=== PATIENT | male | born 1940 | race Caucasian/White ===

== ENCOUNTER 2017-08-02 09:13 | Inpatient (IN) | payer MEDICARE, OTHER ==
--- NOTE | 2017-08-01 16:08 | PDOC1 ---
History and Physical Date of Admission Date of Admission DATE: 08/02/17 Identification/Chief Complaint Chief Complaint left knee osteoarthritis pain Problems: Source Source: Chart review History of Present Illness History of Present Illness The patient is a 77 year old male who has left knee pain, worsening over the past couple of months. He stepped in a hole and twisted his knee about 3 months ago. The pain is located on the posterior aspect of his knee. He rates his pain at a 6/10. Icing his knee improves the pain. The patient has tried cortisone injections and bracing. His last injection was around the beginning of this year. He states he can walk long distances but has limited range of motion. He struggles to put a sock on with his current range of motion. He quit smoking cigarettes in 1983. Past Medical History Cardiovascular: HTN Endocrine: Diabetes Past Surgical History Past Surgical History: Other (rotator cuff repair 2003 & 2009, knee scope with meniscectomy 2006) Family History Family History: Cancer, Stroke Social History Smoke: Quit (1983) ALCOHOL: rare Drugs: None Current Medications Current Medications Current Medications Morphine Sulfate 5 mg/Ketorolac Tromethamine 30 mg/Ropivacaine 60 ml/ Epinephrine HCl 0.5 mg/Sodium Chloride 100 ml @ 100 mls/hr 1X PERIOP ONCE INT ART ; Start 08/02/17 at 06:00; Stop 08/02/17 at 06:59 Active Scripts Active Reported Multiple Vitamin (Multivitamin With Minerals) 1 Each Tablet 1 Each PO DAILY Losartan-Hctz 100-25 Mg Tab (Losartan/Hydrochlorothiazide) 1 Each Tablet 1 Each PO DAILY Aleve (Naproxen Sodium) 220 Mg Tablet 220 Mg PO BID Allergies Allergies: Coded Allergies: No Known Drug Allergies (Unverified , 07/15/17) Physical Exam General: Alert, Oriented X3, Cooperative, No acute distress HEENT: Atraumatic, EOMI Lungs: Normal air movement Heart: RRR Abdomen: Soft Extremities: No clubbing, No cyanosis, No edema, Normal pulses, Other (LEFT KNEE: mildly antalgic gait. There is significant varus alignment. No masses. No detectable effusion. Tenderness on the medial and lateral joint lines. Range of motion is 5-110 degrees. There is crepitus with range of motion, and pain at the extremes of motion. The knee is stable to varus and valgus stress without subluxation or laxity. Muscle strength is normal (5/5) for quadriceps and hamstrings, and muscle tone is normal. The skin shows discoloration distally from venous stasis with no scars, rashes, lesions or ulcers. Light touch sensation is intact. No edema and no varicosities. Dorsalis pedis pulse is intact and capillary refill is normal. The RIGHT knee shows his mildly antalgic gait. There is varus alignment. No masses. No detectable effusion. Tenderness on the joint lines. Range of motion is 3-115 degrees. There is crepitus with range of motion, and pain at the extremes of motion. The knee is stable to varus and valgus stress without subluxation or laxity. Muscle strength is normal (5/5) for quadriceps and hamstrings, and muscle tone is normal. The skin is normal with no scars, rashes, lesions or ulcers. Light touch sensation is intact. No edema and no varicosities. Dorsalis pedis pulse is intact and capillary refill is normal.) Skin: No rashes, No breakdown, No significant lesion Neuro: Normal speech, Sensation intact Psych/Mental Status: Mental status NL, Mood NL Images Images IMAGING REPORT 45 PA weightbearing view of both knees, lateral, and patella view of the left knee. Clinical information: Left knee pain Comparison: AP and lateral 06/09/17 Findings Bones: No fracture or dislocation is present. Joints: There is left knee medial joint space narrowing, with large osteophyte formation , and osteophytes in all three compartments. There is sclerosis of the medial tibiofemoral joint. These are Kellgren Leno grade 3 osteoarthritis changes. Soft tissue: Normal. Impression: Severe osteoarthritis of the left knee Dictated and Signed Using Voice Recognition Software Emigdio White MD VTE Prophylaxis Ordered VTE Prophylaxis Devices: Yes VTE Pharmacological Prophylaxi: Yes Assessment/Plan Assessment/Plan He has tried conservative treatment of cortisone injections and bracing with no improvement. He has constant pain and decreased range of motion that is limiting his activities. Dr. White recommended a total knee arthroplasty for pain relief. We discussed the potential risks of infection, neurovascular injury , bleeding, blood clots, need for revision surgery, or other potential surgical or anesthetic complications. He denies any metal or nickel allergies. Dr. White showed him the Journey total knee arthroplasty model in the clinic. He will followup 10-14 days after surgery. CRUZITO WHITEHEAD Aug 01, 2017 16:08
[~2017-08-02] VITALS: Ht 182.9 cm; Wt 167.0 kg
[~2017-08-02 09:13] MED LIST: CELECOXIB 200 MG CAPSULE. PO PRN; HYDROcodone/APAP 7.5/325MG 1 TAB TABLET PO PRN; IV RINGERS,LACTATED 1000ML 1,000 ML IV SCH; LIDOCAINE 1% PF 2 ML VIAL. ID PRN; LOSA1TAB22 PO; MORPHINE SULFATE 5 MG, KETOROLAC 30 MG, ROPIVacaine 0.5% PF 60 ML, EPINEPHrine 0.5 MG i... INT ART ONE; MULT-460 PO; NAPR220T70 PO; ONDANSETRON PF 4 MG/2 ML VIAL. IV PRN; PROCHLORPERAZINE 10 MG/2 ML VIAL. IV PRN; TRANEXAMIC ACID 1,000 MG in IV NS 50ML -- 1ST BAG INJ ONE; TRANEXAMIC ACID 1,000 MG in IV NS 50ML -- 2ND BAG INJ ONE; fentaNYL PF VIAL 100 MCG/2 ML VIAL IV PRN
[2017-08-02] MEDS ORDERED: fentaNYL PF VIAL 100 MCG/2 ML VIAL ONE ×3 (10:55→12:41)
[2017-08-02] MEDS ORDERED: DEXAMETHASONE SOD PHOS 20 MG/5 ML VIAL. ONE (10:55)
[2017-08-02] MEDS ORDERED: PROPOFOL 20 ML IV ONE (10:55)
[2017-08-02] MEDS ORDERED: FAMOTIDINE 20 MG/2 ML VIAL ONE (10:55)
[2017-08-02] MEDS ORDERED: ROCURONIUM 50 MG/5 ML VIAL. ONE (10:55)
[2017-08-02] MEDS ORDERED: ONDANSETRON PF 4 MG/2 ML VIAL. ONE (10:55)
[2017-08-02] MEDS ORDERED: LIDOCAINE 2% PF Vial for OR 5 ML VIAL. ONE (10:55)
[2017-08-02] MEDS ORDERED: SUCCINYLCHOLINE 200 MG/10 ML VIAL. ONE (10:55)
[2017-08-02] MEDS ORDERED: MIDAZOLAM HCL/PF 2 MG/2 ML VIAL. ONE (10:55)
[2017-08-02] MEDS ORDERED: TOBRAMYCIN POWDER 1.2 GM VIAL. ONE (11:02)
[2017-08-02] MEDS ORDERED: VANCOMYCIN 1 GM VIAL. ONE (11:02)
[2017-08-02] MEDS ORDERED: GLYCOPYRROLATE 1 MG/5 ML VIAL. ONE (11:50)
[2017-08-02] MEDS ORDERED: LABETALOL 20 MG/4 ML DISP.SYRIN. ONE (12:48)
[2017-08-02] MEDS ORDERED: DESFLURANE > 120 MINUTES IH ONE (13:43)
[2017-08-02] MEDS ORDERED: traMADol 50 MG TABLET PO PRN ×2 (14:15)
[2017-08-02] MEDS ORDERED: ZOLPIDEM 5 MG TABLET. PO PRN (14:15)
[2017-08-02] MEDS ORDERED: diphenhydrAMINE 50 MG/ML VIAL IV PRN (14:15)
[2017-08-02] MEDS ORDERED: PROCHLORPERAZINE 10 MG/2 ML VIAL. IV PRN (14:15)
[2017-08-02] MEDS ORDERED: 0.9 % SODIUM CHLORIDE 10 ML DISP.SYRIN. IV PRN (14:15)
[2017-08-02] MEDS ORDERED: PROCHLORPERAZINE 5 MG TABLET. PO PRN (14:15)
[2017-08-02] MEDS ORDERED: MORPHINE SULFATE 10 MG/ML VIAL. IV PRN (14:15)
[2017-08-02] MEDS ORDERED: MORPHINE SULFATE 4 MG/ML DISP.SYRIN. IV PRN ×3 (14:15)
[2017-08-02] MEDS ORDERED: fentaNYL PF VIAL 100 MCG/2 ML VIAL IV PRN ×2 (14:15)
[2017-08-02] MEDS ORDERED: ACETAMINOPHEN 325 MG TABLET. PO PRN (14:15)
[2017-08-02] MEDS ORDERED: oxyCODONE/APAP 5/325 1 TAB TABLET PO PRN (14:15)
[2017-08-02] MEDS ORDERED: CALCIUM CARBONATE 500 MG TAB.CHEW PO PRN (14:15)
[2017-08-02] MEDS ORDERED: DEXTROSE 50% 25 GM / 50ML DISP.SYRIN. IV PRN (14:15)
[2017-08-02] MEDS: MORPHINE SULFATE 2 MG/ML DISP.SYRIN. IV PRN ×2 (14:19→14:43)
--- NOTE | 2017-08-02 14:22 | PDOC4 ---
Operative Note Operative Note Date of Procedure: August 02, 2017 Pre-Op Diagnosis: Osteoarthritis left knee Post-Op Diagnosis: Osteoarthritis left knee Procedure: left total knee arthroplasty Surgeon: Cl White MD Cement Contractor: Amalia Tarango PA-C Anesthesia: General EBL: 100 mL Specimens Obtained: left knee bone and soft tissue Complications: none Implant Company: [employer] Drains: hemovac plus pain catheter Tourniquet time: 54 Minutes Tourniquet Pressure: 350 mm Hg Indications for Procedure: Arthritis pain unrelieved by nonoperative management. Findings: Severe osteoarthritis with bone on bone contact in all three compartments Implants used: Size 5 left bicruciate stabilized Journey II BCS cobalt chrome femoral component, size 5 left Journey nonporous tibial baseplate, size 5 -6 11 mm left Journey II BCS XLPE articular insert, 38 mm oval Tri II resurfacing patellar component Procedure in Detail: The patient was identified in the preoperative holding area, and the correct left lower extremity was marked by me. The patient was taken to the operating room where the patient was anesthetized by the Department of Anesthesia. Preoperative antibiotics were given intravenously. Tranexamic acid 1 g was given intravenously for intraoperative hemostasis. A "time-out" procedure was performed. The patient was positioned supine on the operative table with a tourniquet on the upper left thigh. The left lower limb was thoroughly prepped and draped in sterile fashion. An impervious stockinet and adhesive drape were used such that the skin was entirely covered. An Monroe leg bellamy was used. The operating team wore personal exhaust-ventilated hoods. The limb was elevated to exsanguinate it, and the tourniquet was inflated.. A midline skin incision was made with a scalpel using the patella and tibial tubercle as landmarks. Electrocautery was used for hemostasis. My certified surgical tech/first assistant used rake retractors. A medial parapatellar arthrotomy incision was used with extension into the distal quadriceps tendon. The patella was retracted laterally and Hohmann retractors were now used by my certified surgical tech/first assistant. Excess synovium, the menisci, and the cruciate ligaments were resected sharply. The patella was assessed and excess synovium and osteophytes around the patellar articulation were removed. The patella was measured with a caliper, cut freehand with a saw using caliper measurements, sized, and then drilled for an oval three-pegged patella component. Periarticular anesthetic injection was used in the suprapatellar pouch and distal quadriceps muscle. Whitesides's line and the transepicondylar axis were marked on the femur. An intra-medullary 5 degree cutting guide was pinned to the femur, and a distal femoral cut was made with an oscillating saw. An additional 4 mm resection was used due to the deep femoral sulcus, and deficient femoral condyle. My certified surgical tech/first assistant held Hohmann retractors and an [place] retractor to protect the medial and lateral collateral ligaments, the patellar tendon, the skin and the other soft tissues. An anterior referencing guide was applied with external rotation of 3 to match Whitesides line. A 5-in-1 Journey II cutting guide was then applied and pinned to the femur. The posterior, anterior, and all chamfer cuts were made with the oscillating saw. An extramedullary guide was pinned to the tibia and rotational alignment and the planned resection thickness assessed. An external alignment donald was used to verify the planned cut in the varus-valgus plane and regarding posterior slope referencing the tibial tubercle, the tibial shaft, the ankle joint, and the second metatarsal. The upper tibia was cut made with an oscillating saw. My certified surgical tech/first assistant held Hohmann retractors and a posterior cruciate ligament retractor to protect the medial and lateral collateral ligaments, the patellar tendon, the skin, the peroneal nerve and the other soft tissues. The upper tibia was sized with a trial baseplate. The posterior compartment was cleared of osteophytes and loose bodies, and posterior capsule released. Periarticular anesthetic injection was used in the posterior compartment. The box cut for a posterior stabilized component was made. A preliminary reduction was performed with a trial femur, trial tibial baseplate and trial polyethylene. Soft-tissue balancing was now performed, and extension and rotation of the alignments was checked using a guide donald in the tibial trial and a guide pin in the femur. No additional releases were required. The stability was assessed using different thicknesses of tibial articular surface to find satisfactory stability and good range of motion. The rotation of the tibial component was marked on the upper tibia. Final trial reduction was now performed verifying patella tracking and tibiofemoral stability and alignment. The tibia preparation was completed with a drill, saw, and fin punch at the previously noted rotation. The final implants were verified and opened. Outer gloves were changed by the operating team. The bone cuts were washed thoroughly with the Hutto InterPulse device and dried. Two packages of Chua + Nephew Rally HV bone cement were mixed in powdered form with Vancomycin 1gm and Tobramycin 1.2 gm, and then vacuum-mixed with the monomer, and placed into a cement gun. The cut surfaces of the bone were thoroughly dried with Plata-tip suction and with laparotomy sponges for cement interdigitation. The final components were cemented into place. The knee was kept at full extension while the cement hardened, and excess cement was removed. Tranexamic acid 1 g was redosed intravenously for additional intraoperative hemostasis. A final periarticular anesthetic injection was used for pain relief. The tourniquet was released, and electrocautery was used for hemostasis. A final check of [id number] and stability was made, and the polyethylene implant final size was chosen. The polyethylene implant was secured to the tibial baseplate, and the knee was reduced a final time. Thorough irrigation was used. Hemovac and pain catheter were used.The arthrotomy was closed with interrupted [id number] #1 PDS suture. The arthrotomy incision was then run with #1 STRATAFIX Symmetric PDS Plus Knotless suture. The subcutaneous tissues were closed with #2-0 Vicryl by my certified surgical tech/first assistant. The skin was approximated with lexy by my certified surgical tech/first assistant. The skin incision was then covered and reinforced with a Prevena sterile suction dressing. Needle and sponge counts were correct. There were no apparent complications. The patient returned to the recovery room in stable condition. CL WHITE MD Aug 02, 2017 14:22
[2017-08-02] MEDS: HYDROmorphone 2 MG/ML VIAL IV PRN ×2 (14:31→14:52)
--- NOTE | 2017-08-02 15:29 | RAD ---
Left knee, 2 views, 08/02/2017: History: Postop knee replacement A total knee prosthesis has been placed in satisfactory position. Surgical skin clips and a drain overlie the operative site anteriorly. There is no evidence of a retained surgical instrument, needle or radiopaque sponge on these 2 views. IMPRESSION: No significant postoperative abnormality is detected.
[2017-08-02] MEDS: IV DEXTROSE 5 %-0.45 % NACL 1,000 ML IV SCH (16:00)
[2017-08-02] MEDS: FERROUS SULFATE 325 MG TABLET. PO SCH (18:55)
[2017-08-02 19:22] VITALS: BP 132/78
[2017-08-02] MEDS: KETOROLAC 30 MG, BUPIVACAINE MPF 0.25% 20 ML, EPINEPHrine 0.5 MG in TOTAL VOLUME SYRING... INT ART SCH (19:24)
[2017-08-02] MEDS: ASPIRIN ENTERIC COATED 325 MG TABLET.DR. PO SCH (20:23)
[2017-08-02 22:17] VITALS: BP 143/70
[2017-08-03] MEDS: IV DEXTROSE 5 %-0.45 % NACL 1,000 ML IV SCH ×2 (01:13→12:00)
[2017-08-03 03:29] VITALS: BP 139/73
[2017-08-03] MEDS ORDERED: MAGNESIUM HYDROXIDE 2,400 MG/30 ML ORAL.SUSP. PO PRN (06:00)
[2017-08-03] MEDS: KETOROLAC 30 MG, BUPIVACAINE MPF 0.25% 20 ML, EPINEPHrine 0.5 MG in TOTAL VOLUME SYRING... INT ART SCH (06:15)
[2017-08-03 07:00] VITALS: BP 139/71
[2017-08-03] MEDS: ASPIRIN ENTERIC COATED 325 MG TABLET.DR. PO SCH ×2 (08:34→20:55)
[2017-08-03] MEDS: MULTIVITAMIN with MINERAL TABLET. PO SCH (08:34)
[2017-08-03] MEDS: SENNOSIDES/DOCUSATE 8.6/50MG TABLET. PO SCH (08:34)
[2017-08-03] MEDS: FERROUS SULFATE 325 MG TABLET. PO SCH ×2 (08:36→17:04)
[2017-08-03] MEDS: MELOXICAM 7.5 MG TABLET PO SCH (08:36)
[2017-08-03] MEDS: hydroCHLOROthiazide 25 MG TABLET PO SCH (08:36)
[2017-08-03] MEDS: LOSARTAN POTASSIUM 50 MG TABLET. PO SCH (08:36)
[2017-08-03] MEDS: HYDROcodone/APAP 7.5/325MG 1 TAB TABLET PO PRN (10:37)
[2017-08-03 11:51] VITALS: BP 134/74
--- NOTE | 2017-08-03 12:03 | PDOC2 ---
ESPINOZA MOSS CNA PCT 08/03/17 1203: CARDIAC CONSULT DATE OF CONSULT Date of Consult DATE: 08/03/17 TIME: 11:59 REASON FOR CONSULT Reason for Consult: Bradycardia REFERRING PHYSICIAN Referring Physician: Dr. White SOURCE Source: Chart review, Patient HISTORY OF PRESENT ILLNESS HISTORY OF PRESENT ILLNESS This os a 77 yo male who presented electively for a left total knee arthroplasty , which was performed 08/02/17. Patient was noted to be bradycardic, which prompted this consult. Review of tele revealed sinus bradycardia. No significant pauses noted. Denies any dizziness, diaphoresis, lightheadedness, syncope, SOA, palpitations, or chest pain. Bradycardia has since resolved and no further episodes since 8:00am. Presently maintaining HR in the low 80's. No previous h/o of cardiac disease. Had a stress test and echo conducted a couple of weeks ago with Dr. York with [facility] for pre-op clearance, both of which were reportedly normal. PAST MEDICAL HISTORY Cardiovascular: HTN Pulmonary: No pertinent hx GI: No pertinent hx Heme/Onc: No pertinent hx Hepatobiliary: No pertinent hx Psych: No pertinent hx Musculoskeletal: Osteoarthritis Rheumatologic: No pertinent hx Infectious disease: No pertinent hx ENT: No pertinent hx Renal/: No pertinent hx Endocrine: Diabetes Dermatology: No pertinent hx PAST SURGICAL HISTORY Past Surgical History: Cholecystectomy FAMILY HISTORY Family History: Hypertension SOCIAL HISTORY Smoke: No ALCOHOL: occassional Drugs: None Lives: with Family CURRENT MEDICATIONS CURRENT MEDICATIONS Current Medications Medications (Trade) Dose Ordered Sig/Carole Route PRN Reason Start Time Stop Time Status Last Admin Dose Admin Acetaminophen/ Hydrocodone Bitart (Lortab 7.5/325) 1 tab PRN Q3HRS PRN PO PAIN 08/02/17 14:15 08/03/17 10:37 Multivitamins (Thera M Plus) 1 tab DAILY PO 08/03/17 09:00 08/03/17 08:34 Senna/Docusate Sodium (Senna Plus) 1 tab DAILY PO 08/03/17 09:00 08/03/17 08:34 Ferrous Sulfate (Feosol) 325 mg BIDWMEALS PO 08/02/17 17:00 08/03/17 08:36 Ketorolac Tromethamine 30 mg/Bupivacaine HCl 20 ml/ Epinephrine HCl 0.5 mg/ Miscellaneous 43 ml @ 258 mls/hr Q12H INT ART 08/02/17 18:00 08/03/17 06:09 DC 08/03/17 06:15 Prochlorperazine Edisylate (Compazine) 10 mg PRN Q4HRS PRN IV NAUSEA/VOMITING 08/02/17 14:15 08/02/17 18:55 Cefazolin Sodium 3 gm/Sodium Chloride 100 ml @ 200 mls/hr Q6H IV 08/02/17 18:00 08/03/17 06:29 DC 08/03/17 06:15 Aspirin (Ecotrin) 325 mg BID PO 08/02/17 21:00 08/03/17 08:34 Meloxicam (Mobic) 15 mg DAILY PO 08/03/17 09:00 08/03/17 08:36 Losartan Potassium (Cozaar) 100 mg DAILY PO 08/03/17 09:00 08/03/17 08:36 Hydrochlorothiazide (Hydrodiuril) 25 mg DAILY PO 08/03/17 09:00 08/03/17 08:36 ALLERGIES ALLERGIES: Coded Allergies: No Known Drug Allergies (Unverified , 08/02/17) ROS Review of System 14 point ROS conducted with pertinent positives noted above in HPI. PHYSICAL EXAM General: Alert, Oriented X3, Cooperative, No acute distress HEENT: Atraumatic, Mucous membr. moist/pink Lungs: Clear to auscultation, Normal air movement Heart: Regular rate, Normal S1, Normal S2 Abdomen: Soft, No tenderness Extremities: No edema, Normal pulses, Other (NICOLA to LLE) Skin: No breakdown, No significant lesion Neuro: Normal speech, Sensation intact Psych/Mental Status: Mood NL VITALS VITALS Vital Signs Date Time Temp Pulse Resp B/P (MAP) Pulse Ox O2 Delivery O2 Flow Rate FiO2 08/03/17 11:51 97.6 84 20 134/74 (94) 95 Nasal Cannula 2.0 97.6 LABS Lab: Laboratory Tests Test 08/02/17 14:25 Glucose (Fingerstick) 172 mg/dL (70-99) ASSESSMENT/PLAN ASSESSMENT/PLAN 1. Sinus bradycardia, asymptomatic; resolved. possibly anesthesia induced 2. Osteoarthritis s/p left total knee arthroplasty 3. Hypertension Recommendations Avoid AV rober blocking agents Continue losartan for BP control No further cardiac workup warranted. May discontinue telemetry monitoring and transfer to surgical floor Thank you for the consultation Problems: FLORES FINNEGAN MD 08/03/17 1721: CARDIAC CONSULT ALLERGIES ALLERGIES: Coded Allergies: No Known Drug Allergies (Unverified , 08/02/17) ASSESSMENT/PLAN ASSESSMENT/PLAN Patient seen and examined. Agree with above nurse practitioner note. Asymptomatic bradycardia. Supportive care. OK to DC from CV perspective. No tele needed. Thanks Problems: ESPINOZA MOSS APRN Aug 03, 2017 12:03 FLORES FINNEGAN MD Aug 03, 2017 17:21
--- NOTE | 2017-08-03 13:20 | PDOC ---
PROGRESS NOTES Subjective Subjective No complaints. States he is feeling well. Cardiology consulted on patient and cleared patient for transfer to joint floor. Objective Vital Signs Vital Signs Date Time Temp Pulse Resp B/P (MAP) Pulse Ox O2 Delivery O2 Flow Rate FiO2 08/03/17 11:51 97.6 84 20 134/74 (94) 95 Nasal Cannula 2.0 97.6 Physical Exam Dressing dry. Prevena intact over incision. Pain catheter and Hemovac in place. Good dorsiflexion and plantarflexion of the foot with no evidence of neurovascular injury or DVT. Calves are soft and non-tender. Negative Homans. Peripheral pulses and light touch sensation intact. Labs Laboratory Tests Test 08/02/17 09:59 08/02/17 14:25 Glucose (Fingerstick) 117 mg/dL (70-99) 172 mg/dL (70-99) Laboratory Tests Test 08/02/17 14:25 Glucose (Fingerstick) 172 mg/dL (70-99) Imaging Postoperative x-rays reviewed by me, showing satisfactory total knee replacement , with no apparent complications. Assessment Assessment POD #1 TKA Problems: Plan Plan of Care Continue POC including DVT prophylaxis and physical therapy. He would like to go to [place] upon discharge on Tuesday. Pt was bradycardic after surgery and was sent to cardiac floor. Cardiology saw patient and no further cardiac workup is warranted. He may be transferred to the joint floor. CRUZITO WHITEHEAD Aug 03, 2017 13:20
[2017-08-03 15:00] VITALS: BP 116/62
[2017-08-03] MEDS ORDERED: BISACODYL 10 MG SUPP.RECT. PR PRN (16:00)
[2017-08-03 18:08] VITALS: BP 122/68
[2017-08-03] MEDS: HYDROcodone/APAP 10/325 1 TAB TABLET PO PRN (20:55)
[2017-08-04 03:27] VITALS: BP 132/78
[2017-08-04 05:00] VITALS: BP 154/84
[2017-08-04] MEDS: HYDROcodone/APAP 10/325 1 TAB TABLET PO PRN ×2 (05:36→09:39)
[2017-08-04 06:17] LABS: HEMATOCRIT 37.7 % (39.0-53.0); HEMOGLOBIN 12.5 g/dL (13.0-17.5)
[2017-08-04] MEDS: FERROUS SULFATE 325 MG TABLET. PO SCH ×2 (08:22→16:27)
[2017-08-04] MEDS: MELOXICAM 7.5 MG TABLET PO SCH (08:22)
[2017-08-04] MEDS: MULTIVITAMIN with MINERAL TABLET. PO SCH (08:22)
[2017-08-04] MEDS: ASPIRIN ENTERIC COATED 325 MG TABLET.DR. PO SCH ×2 (08:22→22:04)
[2017-08-04] MEDS: LOSARTAN POTASSIUM 50 MG TABLET. PO SCH (08:23)
[2017-08-04] MEDS: hydroCHLOROthiazide 25 MG TABLET PO SCH (08:23)
[2017-08-04] MEDS: SENNOSIDES/DOCUSATE 8.6/50MG TABLET. PO SCH (08:23)
--- NOTE | 2017-08-04 11:52 | PATHOLOGY ---
PATHOLOGY REPORT * * * * * * * * FINAL DIAGNOSIS: Segments of bone and soft tissue, left total knee arthroplasty: - Advanced degenerative arthritis. (JPM:mmalexys; 08/04/2017) REPORT ELECTRONICALLY SIGNED BY: Leonid Nobles M.D. DATE/TIME: 08/04/2017 11:51 * * * * * * * * GROSS PATHOLOGY: Received in formalin labeled "Cl Elaine, left knee tissue," are multiple segments of bone, including tibial plateau, measuring 15.3 x 13.5 x 4.7 cm in aggregate dimensions admixed with soft tissue; meniscus is present. The specimen shows focal eburnation of the articular surfaces. Winch Truck Operator sections of bone and soft tissue are submitted in cassette A1, following decalcification. (DAC; 08/03/2017) INITIAL CPT CODE(S): A; 75473, 03903 Professional services [place] [address] Technical services performed by [facility] at [address] [place] [address], [facility] [address] [address]. SPECIMEN(S) RECEIVED: A.Left knee tissue CLINICAL HISTORY: Left knee OA PATIENT: CL ELAINE /AGE: 704/16/1940 (Age: 77) PATIENT #: [id number] ALT CASE #: SPECIMEN COLLECTION DATE: 08/02/2017 SPECIMEN RECEIVED DATE: 08/02/2017 [facility] - [address] [place] [address] - PHONE: [phone] * * * END OF REPORT * * *
[2017-08-04] MEDS: HYDROcodone/APAP 7.5/325MG 1 TAB TABLET PO PRN (12:23)
--- NOTE | 2017-08-04 12:28 | PDOC ---
PROGRESS NOTES Subjective Subjective Doing well. Only reports mild pain increase from yesterday. Objective Vital Signs Vital Signs Date Time Temp Pulse Resp B/P (MAP) Pulse Ox O2 Delivery O2 Flow Rate FiO2 08/04/17 12:23 Room Air 08/04/17 08:23 75 154/84 08/04/17 06:41 20 08/04/17 05:00 98.0 98 98.0 08/03/17 11:51 2.0 Physical Exam Expected swelling. Pain catheter and drain have been removed. Prevena intact Calf soft and nontender. Negative Homans sign. Good AROM ankle. Peripheral pulses and light touch sensation intact. Labs Laboratory Tests Test 08/02/17 14:25 08/03/17 16:33 08/04/17 05:40 08/04/17 06:45 Glucose (Fingerstick) 172 mg/dL (70-99) 136 mg/dL (70-99) 122 mg/dL (70-99) Hemoglobin 12.5 g/dL (13.0-17.5) Hematocrit 37.7 % (39.0-53.0) Mean Corpuscular Hemoglobin Concent 33 g/dL (31-37) Laboratory Tests Test 08/03/17 16:33 08/04/17 05:40 08/04/17 06:45 Glucose (Fingerstick) 136 mg/dL (70-99) 122 mg/dL (70-99) Hemoglobin 12.5 g/dL (13.0-17.5) Hematocrit 37.7 % (39.0-53.0) Mean Corpuscular Hemoglobin Concent 33 g/dL (31-37) Assessment Assessment POD #2 TKA Problems: Plan Plan of Care Continue DVT prophylaxis and physical therapy. Planned discharge tomorrow. Office F/U in 10-[address] White saw and examined the patient as well. CRUZITO WHITEHEAD Aug 04, 2017 12:28
[2017-08-04] MEDS: oxyCODONE/APAP 7.5/325 1 TAB TABLET PO PRN ×2 (16:26→22:05)
[2017-08-04 18:07] VITALS: BP 128/88
[2017-08-05 05:46] LABS: HEMATOCRIT 34.8 % (39.0-53.0); HEMOGLOBIN 11.6 g/dL (13.0-17.5)
[2017-08-05] MEDS: oxyCODONE/APAP 7.5/325 1 TAB TABLET PO PRN ×3 (06:05→13:23)
[2017-08-05 06:07] VITALS: BP 136/82
[2017-08-05] MEDS: ASPIRIN ENTERIC COATED 325 MG TABLET.DR. PO SCH (09:06)
[2017-08-05] MEDS: SENNOSIDES/DOCUSATE 8.6/50MG TABLET. PO SCH (09:06)
[2017-08-05] MEDS: MULTIVITAMIN with MINERAL TABLET. PO SCH (09:06)
[2017-08-05] MEDS: hydroCHLOROthiazide 25 MG TABLET PO SCH (09:06)
[2017-08-05] MEDS: FERROUS SULFATE 325 MG TABLET. PO SCH (09:06)
[2017-08-05] MEDS: MELOXICAM 7.5 MG TABLET PO SCH (09:06)
[2017-08-05 09:07] VITALS: BP 136/82
[2017-08-05] MEDS: LOSARTAN POTASSIUM 50 MG TABLET. PO SCH (09:07)
--- NOTE | 2017-08-05 13:35 | PDOC ---
PROGRESS NOTES Subjective Subjective Doing well. Planning for discharge later today after PT. Objective Vital Signs Vital Signs Date Time Temp Pulse Resp B/P (MAP) Pulse Ox O2 Delivery O2 Flow Rate FiO2 08/05/17 13:23 16 Room Air 08/05/17 09:07 93 136/82 08/05/17 06:07 98.6 94 98.6 08/03/17 11:51 2.0 Physical Exam Expected swelling. Prevena dressing intact and dry. Calf soft and nontender. Negative Homans. Good AROM ankle. Peripheral pulses and light touch sensation intact. Labs Laboratory Tests Test 08/03/17 16:33 08/04/17 05:40 08/04/17 06:45 08/04/17 11:37 Glucose (Fingerstick) 136 mg/dL (70-99) 122 mg/dL (70-99) 115 mg/dL (70-99) Hemoglobin 12.5 g/dL (13.0-17.5) Hematocrit 37.7 % (39.0-53.0) Mean Corpuscular Hemoglobin Concent 33 g/dL (31-37) Test 08/04/17 16:45 08/05/17 04:36 Glucose (Fingerstick) 111 mg/dL (70-99) Hemoglobin 11.6 g/dL (13.0-17.5) Hematocrit 34.8 % (39.0-53.0) Mean Corpuscular Hemoglobin Concent 33 g/dL (31-37) Laboratory Tests Test 08/04/17 16:45 08/05/17 04:36 Glucose (Fingerstick) 111 mg/dL (70-99) Hemoglobin 11.6 g/dL (13.0-17.5) Hematocrit 34.8 % (39.0-53.0) Mean Corpuscular Hemoglobin Concent 33 g/dL (31-37) Assessment Assessment POD 3 TKA Problems: Plan Plan of Care Discharge later today, to facility Continue DVT prophylaxis and physical therapy. F/U 10-14 days. CL SERRANO MD Aug 05, 2017 13:35
--- NOTE | 2017-08-05 13:35 | PDOC3 ---
Discharge Summary Visit Information Date of Admission: Aug 02, 2017 Date of Discharge: Aug 05, 2017 Admitting Diagnosis: left knee osteoarthritis Brief Hospital Course Allergies Allergies Coded Allergies Type Severity Reaction Last Updated Verified No Known Drug Allergies 08/02/17 No Vital Signs Vital Signs Date Time Temp Pulse Resp B/P (MAP) Pulse Ox O2 Delivery O2 Flow Rate FiO2 08/05/17 13:23 16 Room Air 08/05/17 09:07 93 136/82 08/05/17 06:07 98.6 94 98.6 Lab Results Laboratory Tests Test 08/03/17 16:33 08/04/17 05:40 08/04/17 06:45 08/04/17 11:37 Glucose (Fingerstick) 136 mg/dL (70-99) 122 mg/dL (70-99) 115 mg/dL (70-99) Hemoglobin 12.5 g/dL (13.0-17.5) Hematocrit 37.7 % (39.0-53.0) Mean Corpuscular Hemoglobin Concent 33 g/dL (31-37) Test 08/04/17 16:45 08/05/17 04:36 Glucose (Fingerstick) 111 mg/dL (70-99) Hemoglobin 11.6 g/dL (13.0-17.5) Hematocrit 34.8 % (39.0-53.0) Mean Corpuscular Hemoglobin Concent 33 g/dL (31-37) Laboratory Tests Test 08/04/17 16:45 08/05/17 04:36 Glucose (Fingerstick) 111 mg/dL (70-99) Hemoglobin 11.6 g/dL (13.0-17.5) Hematocrit 34.8 % (39.0-53.0) Mean Corpuscular Hemoglobin Concent 33 g/dL (31-37) Brief Hospital Course 77 year old male who presented with knee osteoarthritis, for elective total knee arthroplasty. The patient underwent total knee arthroplasty under general anesthesia the day of admission. Perioperative antibiotics and DVT prophylaxis were used. Postoperatively physical therapy and case management were consulted. The patient progressed and is stable for discharge. Discharge Information Condition at Discharge: Stable Follow Up: Weeks (2) Disposition/Orders: D/C to Another Facility Scheduled Losartan/Hydrochlorothiazide (Losartan-Hctz 100-25 Mg Tab), 1 EACH PO DAILY, ( Reported) Multivitamin With Minerals (Multiple Vitamin), 1 EACH PO DAILY, (Reported) Naproxen Sodium (Aleve), 220 MG PO BID, (Reported) Patient Instructions Patient Instructions Patient Instructions Continue to WBAT with walker. Keep dressing dry and intact. F/U with [facility] in 10-14 days. Call for appointment. Physical therapy for TKA Continue DVT prophylaxis with aspirin 325 mg twice daily. CRUZITO WHITEHEAD Aug 05, 2017 13:35
[2017-08-05] MEDS ORDERED: ASPI325T8 PO (13:55)
[2017-08-05] MEDS ORDERED: OXYC-323 PO (13:57)
[2017-08-05] MEDS ORDERED: MELO15TA23 PO (14:00)
== END 2017-08-05 14:45 | DRG 470 ==
LOC: OPSVCIP 09:13 → EDUNIT# 12:45 → 2 NORTH 16:41 → 4 SOUTHEST 08-03 14:57
PROVIDERS: ADMIT Orthopaedic Surgery; ATTEND Orthopaedic Surgery
PROC: 0SRD0J9 Replacement of Left Knee Joint with Synthetic Substitute, Cemented, Open Approach (ICD-10-PCS; principal; 2017-08-02 11:00)
DX: M17.12 Unilateral primary osteoarthritis, left knee (principal); E11.9 Type 2 diabetes mellitus without complications; R00.1 Bradycardia, unspecified; I10 Essential (primary) hypertension; Z87.891 Personal history of nicotine dependence; Z82.3 Family history of stroke; Z82.49 Family history of ischemic heart disease and other diseases of the circulatory system; Z90.49 Acquired absence of other specified parts of digestive tract
CPT/HCPCS: 36415; 73560; 82962; 85014; 85018; 86850; 86900; 86901; 88305; 88311; C1713; J0171; J0330; J0690; J0780; J1100; J1170; J1885; J2250; J2270; J2405; J2704; J2795; J3010; J3260; J3370; J3490; J7030; J7120; S0028; 97110; 97116; 97150; 97530; 97535; A4461; C1769; J2001